=== PATIENT | female | born 1980 | race Two or more races ===

== ENCOUNTER 2023-09-24 12:07 | Emergency (ER) | payer SELFPAY ==
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
[2023-09-24 12:11] VITALS: BP 108/71; PULSE 78; RESP 19; TEMP 36.6; O2SAT 98; BMI 36.7
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
[2023-09-24 12:45] LABS: UPreg QC Valid YES; Urine Pregnancy NEGATIVE (NEGATIVE)
[2023-09-24] MEDS: Ketorolac Tromethamine 30 MG/ML VIAL IM (15:09)
== END 2023-09-24 15:29 | disposition home or self-care (01) ==
PROVIDERS: Physician Assistant Medical; Emergency Provider Emergency Medicine Emergency Medical Services
DX: S39.92XA Unspecified injury of lower back, initial encounter (principal); S89.91XA Unspecified injury of right lower leg, initial encounter; M25.551 Pain in right hip; M25.561 Pain in right knee; V43.62XA Car passenger injured in collision with other type car in traffic accident, initial encounter; Y93.9 Activity, unspecified; Y92.410 Unspecified street and highway as the place of occurrence of the external cause; Y99.9 Unspecified external cause status
CPT/HCPCS: 73502; 73562; 81025; 96372; 99283; 99284; J1885

== ENCOUNTER 2024-03-26 09:41 | Emergency (ER) | payer MEDICAID, SELFPAY ==
--- NOTE | ~2024-03-26 | XR_ITS ---
EXAMINATION: XR FINGER, LEFT CLINICAL INFORMATION: Middle finger injury COMPARISON: None available. TECHNIQUE: Three views of the left long finger. FINDINGS: No acute visible fracture or dislocation. Negative ulnar variance. Joint space alignment are maintained. Soft tissues are unremarkable. XR/XR finger LT min 2V IMPRESSION: 1. No acute visible fracture or dislocation. 2. Negative ulnar variance.
[2024-03-26 09:56] VITALS: BP 110/62; PULSE 67; RESP 18; TEMP 36.3; O2SAT 98; BMI 39.7
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
[2024-03-26 11:07] VITALS: BP 96/58; RESP 14; TEMP 36.2; O2SAT 98
[2024-03-26 12:30] VITALS: BP 109/57; PULSE 64; RESP 18; TEMP 36.2; O2SAT 96
== END 2024-03-26 12:31 | disposition home or self-care (01) ==
PROVIDERS: Emergency Provider Emergency Medicine
DX: S63.633A Sprain of interphalangeal joint of left middle finger, initial encounter (principal); W23.0XXA Caught, crushed, jammed, or pinched between moving objects, initial encounter; Y93.89 Activity, other specified; Y92.9 Unspecified place or not applicable; Y99.9 Unspecified external cause status; M79.642 Pain in left hand
CPT/HCPCS: 73140; 99283

== ENCOUNTER 2024-12-30 08:19 | Emergency (ER) | payer SELFPAY ==
[2024-12-30] VITALS (12 sets, daily range): BP systolic 99–154; BP diastolic 51–96; PULSE 55–106; RESP 14–18; TEMP 36.5–37.1; O2SAT 96–100; BMI 41.8
--- NOTE | ~2024-12-30 | US_ITS ---
EXAMINATION: US PELVIS CLINICAL INFORMATION: Severe lower abdominal pain and vaginal bleeding. 44-year-old female, history of . COMPARISON: None available. TECHNIQUE: Ultrasound of the pelvis is performed using both transabdominal and transvaginal transducers along with Doppler. Transvaginal imaging is performed due to inadequate visualization transabdominally. FINDINGS: Uterus: The uterus is anteverted and measures 14.9 x 5.2 x 5.1 cm. There is a large likely blood clot in the cervical region measuring 8.4 x 5.4 x 6.0 cm. Underlying cervical mass cannot be excluded. The double wall endometrial thickness is 19 mm. It is not well visualized due to shadowing from the abnormality in the cervical region. Limited imaging of the uterus demonstrates no discrete myometrial mass or fibroid. No visible fibroid. Adnexa: Both ovaries are visualized. There is normal color flow to the adnexa. There is no ovarian torsion. There is no pelvic ascites or fluid collection. No adnexal masses. Right ovary was not definitively visualized. Left ovary was not definitively visualized. US/US pelvic ovarian doppler IMPRESSION: 1. Large blood clot present within the cervical region measuring 8.4 x 5.4 x 6.0 cm. Underlying mass cannot be excluded. This also limited visualization of the myometrium and endometrium. Per technologist note, the patient passed a large clot after the transvaginal exam. ER was notified. 2. The ovaries could not be visualized with certainty. No large adnexal masses. 3. Limited imaging of the endometrium and myometrium. Endometrium appears to measure approximately 19 mm. 4. Although none seen, cannot exclude small myometrial fibroid tumors. Electronically signed by: Spencer Su MD 12/30/2024 10:18 AM [facility]
--- NOTE | ~2024-12-30 | US_ITS ---
EXAMINATION: US PELVIS CLINICAL INFORMATION: Severe lower abdominal pain and vaginal bleeding. 44-year-old female, history of . COMPARISON: None available. TECHNIQUE: Ultrasound of the pelvis is performed using both transabdominal and transvaginal transducers along with Doppler. Transvaginal imaging is performed due to inadequate visualization transabdominally. FINDINGS: Uterus: The uterus is anteverted and measures 14.9 x 5.2 x 5.1 cm. There is a large likely blood clot in the cervical region measuring 8.4 x 5.4 x 6.0 cm. Underlying cervical mass cannot be excluded. The double wall endometrial thickness is 19 mm. It is not well visualized due to shadowing from the abnormality in the cervical region. Limited imaging of the uterus demonstrates no discrete myometrial mass or fibroid. No visible fibroid. Adnexa: Both ovaries are visualized. There is normal color flow to the adnexa. There is no ovarian torsion. There is no pelvic ascites or fluid collection. No adnexal masses. Right ovary was not definitively visualized. Left ovary was not definitively visualized. US/US pelvic and transvaginal IMPRESSION: 1. Large blood clot present within the cervical region measuring 8.4 x 5.4 x 6.0 cm. Underlying mass cannot be excluded. This also limited visualization of the myometrium and endometrium. Per technologist note, the patient passed a large clot after the transvaginal exam. ER was notified. 2. The ovaries could not be visualized with certainty. No large adnexal masses. 3. Limited imaging of the endometrium and myometrium. Endometrium appears to measure approximately 19 mm. 4. Although none seen, cannot exclude small myometrial fibroid tumors. Electronically signed by: Spencer Su MD 12/30/2024 10:18 AM [facility]
--- NOTE | 2024-12-30 08:41 | ED.ABDPAIN ---
HPI - Abdominal Pain General Chief Complaint: Vaginal Bleeding Stated Complaint: ABD PAIN,INCR W/MOVEMENT,ON MENSES PER EMS Time Seen by Provider: 12/30/24 10:14 Source: patient and RN notes reviewed Mode of arrival: ambulatory Limitations: no limitations History of Present Illness ED Provider: Prudence English PA-C HPI narrative: This is a 44-year-old female, , who presents emergency department for evaluation of lower abdominal pain, and prolonged menstrual bleeding for the last month. patient states that she had her menstrual period in November, approximately November 27, and states that she had this for 5-6 days, which was her normal cycle. She states that it stopped for about 2-3 days, and then returned. She states that she has had vaginal bleeding over the last month. She states that over the last several days the bleeding has become much more heavy. She states that she was changing her pad every 1/2 hour. She states that she was using greater than 20 pads per day. Denies history of heavy menses like this in the past.She states that over the last several days she has also had some intermittent dizziness, which typically occurs when she developed severe pelvic pain. Patient states that she has had ongoing intermittent pelvic pain, describes this as a contraction like sensation. She denies history of similar symptoms in the past. She is not on anticoagulation. She denies any fevers, chills, chest pain, shortness of breath. she states that she has had intermittent nausea. States that she vomited several minutes prior to my assessment. She denies any urinary frequency, urgency, or dysuria. Denies any diarrhea constipation. She is sexually active with 1 partner. n She has not had intercourse over the last month due to menstrual bleeding. Her OBGYN who she previously saw was in [place], she does not have a local OBGYN now. No other complaints or concerns at this time. MD elicited complaint: abdominal pain Related Data Previous Rx's ?Medication ?Instructions ?Recorded acetaminophen 500 mg tablet 500 mg PO Q6H PRN fever or pain 09/24/23 (Tylenol Extra Strength) #14 tabs cyclobenzaprine 5 mg tablet 5 mg PO Q8H PRN pain (scale score 09/24/23 7-10) 5 days #14 tabs lidocaine 5 % topical patch 1 patch topical DAILY PRN pain #30 09/24/23 (Lidoderm) ea naproxen 500 mg tablet 500 mg PO BID PRN pain 10 days #20 09/24/23 tabs Allergies Allergy/AdvReac Type Severity Reaction Status Date / Time bee pollen [bee stings] Allergy Anaphylaxis Verified 12/30/24 08:43 peanut Allergy Anaphylaxis Verified 12/30/24 08:43 Review of Systems Review of Systems Yes all other systems are reviewed and are negative [facility] Social History Social History Alcohol intake: current Alcohol intake frequency: holidays/special occasions only Smoked in Last 30 Days: Yes Use of substances other than those prescribed or required for medical reasons: Yes Substance Use Type: Marijuana Substance Use Frequency: Occasionally Advance Directives: No Advance Directives Information Provided: Yes Physical Exam ED Vital Signs: Vital Signs - 24 hr 12/30/24 08:36 12/30/24 10:59 12/30/24 12:11 Temperature 98.7 F 98.2 F Pulse Rate 95 64 Respiratory Rate 18 14 14 Blood Pressure 104/78 99/55 L Pulse Oximetry 98 Oxygen Delivery Method Room Air Room Air Oxygen Flow Rate 12/30/24 13:18 12/30/24 15:14 12/30/24 15:27 Temperature 97.7 F 97.8 F Pulse Rate 55 69 67 Respiratory Rate 14 16 16 Blood Pressure 133/58 L 101/54 L 108/58 L Pulse Oximetry 100 99 Oxygen Delivery Method Nasal Cannula Room Air Oxygen Flow Rate 2 12/30/24 15:48 12/30/24 15:48 12/30/24 15:51 Temperature 98.2 F 98.2 F Pulse Rate 63 71 Respiratory Rate 16 17 14 Blood Pressure 118/70 118/70 Pulse Oximetry Oxygen Delivery Method Oxygen Flow Rate 12/30/24 18:30 12/30/24 18:38 Temperature 98.2 F 98 F Pulse Rate 73 68 Respiratory Rate 16 15 Blood Pressure 120/51 L 121/68 Pulse Oximetry 100 Oxygen Delivery Method Room Air Oxygen Flow Rate BMI result Body Mass Index 41.8 Other: Speculum exam performed with Dr. Kearns, supervising MD present. patient with blood noted on the external genitalia, with what ronni pad. upon inserting the speculum, there were small pea sized clots that were removed. She then had a larger grape sized clot that was removed from the vaginal vault. Upon removing, in vaginal bleeding filled speculum, this was suctioned out 10. Cervical os was visualized, which has closed, no active bleeding or clots seen. Course Course Course Narrative: 44 yo female with PMH of asthma not on thinners here with c/o unusually long menses x 1 month. States she is having heavy bleeding and clots with severe pelvic cramping. She has never had this before. She is not on OCPs at this time will obtain basic labs and pelvic US this is a RAPID medical screening exam the rest of the history and physical exam is to be done by the main provider. Reevaluation(s) Reevaluation #1: repeat H&H 07/31.6. This was done after giving IV fluids. blood pressure 99/55. She states that the cramping has improved after receiving fentanyl. Discussed case with Dr. Kearns who recommends reaching out to Dr. Graves I reassess patient, patient does appear to be vaginal bleeding again. Time: 13:10 Reevaluation #2: Patient was seen by Dr. Graves, who performed an endometrial biopsy as well as a Mirena IUD insertion. Dr. Graves be reports no evidence of hemorrhage however does report some moderate vaginal bleeding. Recommending transfused with 1 unit of rbc's, repeat CBC. And pad count in order to determine if patient can be discharged home or require D and C and to be kept overnight. Patient signed blood consent, will transfuse with 1 unit of PRBC. we will continue to closely monitor. Time: 14:00 Reevaluation #3: transfusion was initiated 15 minutes ago, patient reporting increased pain, she will be treated with another dose of fentanyl 50 mcg. She tolerated this well previously. We will continue to closely monitor blood pressure stable at 105/58 Time: 15:46 Additional Reevaluation(s): Patient was seen and evaluated again by Dr. Graves . I was at bedside. Patient's bleeding seems to have slowed. We will medicate with Toradol IV. We will continue to monitor. She was receiving her blood transfusion at this time. We will repeat CBC once this blood transfusion has been completed. Patient may be discharged if the CBC remained stable or has improved however if patient does have a drop in hemoglobin hematocrit, patient will need to be admitted for monitoring. Dr. Ely vargas discussed strict return precautions should she be discharged. Educated to return if increased bleeding occurs. We will continue to closely monitor. Sign-out was given to my colleague, Roxanne Rodriguez PA-C pending disposition. Course Hospital Course: I Shanta Rodriguez PA-C have accepted care of the patient and signed out pending repeat H&H and final disposition 3rd H&H is stable, the patient can be discharged for follow up with gynaecological oncologist Reevaluation(s) Time: 13:10 Time: 14:00 Time: 15:46 Vital Signs Vital signs: Vital Signs Temperature 98.7 F 12/30/24 08:36 Pulse Rate 95 12/30/24 08:36 Respiratory Rate 18 12/30/24 08:36 Blood Pressure 104/78 12/30/24 08:36 Pulse Oximetry 98 12/30/24 08:36 Oxygen Delivery Method Room Air 12/30/24 08:36 Temperature 98 F 12/30/24 18:38 Pulse Rate 68 12/30/24 18:38 Respiratory Rate 15 12/30/24 18:38 Blood Pressure 121/68 12/30/24 18:38 Pulse Oximetry 100 12/30/24 18:30 Oxygen Delivery Method Room Air 12/30/24 18:30 Oxygen Flow Rate 2 12/30/24 13:18 Medical Decision Making Medical Decision Making MDM Narrative: This is a 44-year-old female who presents to the emergency department for evaluation of vaginal bleeding for the last month. On arrival, blood pressure 104/78, all other vital signs within normal limits. She states that she had her normal menses 1 month ago, which stopped after 4-5 days, and then 2-3 days later, the bleeding started again. She states that she has been vaginally bleeding continuously for the last month, she states that over the last several days she has been having increased bleeding. She states that she has had intermittent dizziness. she has been going through a pad every 30 minutes. She states that she has +large clots. Speculum examination was performed with my attending physician, Dr. Kearns present. Large blood clot removed using suction, sectioned approximately 100 mL of vaginal thin blood. Cervical os was visualized, and is closed, no active bleeding or clots seen. Pressure became slightly hypotensive at 99/55, 2 L of LR were hung. Patient also medicated with IV Tylenol. Will hydrate with 2 L IV fluids. H&H revealing normocytic anemia with an H&H of 10.2/30.6, beta quant <2. Ultrasound was ordered prior to my assessment. The impression is a large blood clot present within the cervical region measuring 8.4cm x 5cm x 6cm. Underlying mass can not be excluded. This also limited visualization of the myometrium and endometrium. Per tech note, patient passed a large clot after the transvaginal exam. The ovaries could not be visualized with certainty. Limited imaging of the endometrium and myometrium. Endometrium appears to measure approximately 19 mm. Can not exclude small myometrial fibroid tumors. We will repeat CBC after completion of fluids at noon. We will continue to closely monitor. She was also medicated with fentanyl 1 time dose. Differential Diagnosis Differential Diagnoses: The differential diagnosis associated with the presentation includes abnormal uterine bleeding, , malignancy, uterine fibroid, uterine hemorrhage Lab Data [facility] Lab Attestation statement: I reviewed the patient's lab results. see [facility] 12/30/24 19:29 12/30/24 09:18 Labs: Lab Results 12/30/24 12/30/24 12/30/24 Range/Units 09:18 12:17 19:29 WBC 9.3 10.6 (4.8-10.8) X10*3/uL RBC 3.48 L 3.13 L (4.20-5.50) X10*6/uL Hgb 10.2 L 9.0 L 10.1 L (12.0-16.0) g/dl Hct 30.6 L 27.6 L 30.9 L (37.0-47.0) % MCV 87.9 88.2 (80.0-98.0) fL MCH 29.3 28.8 (27.0-33.0) pg MCHC 33.3 32.6 (31.0-35.0) g/dl RDW 15.5 15.6 (11.0-16.0) % Plt Count 289 249 (160-400) X10*3/uL MPV 10.3 10.0 (9.4-12.3) fL Immature Gran % (Auto) 0.3 0.4 (0.0-0.4) % Neut % (Auto) 63.0 73.1 H (45-73) % Lymph % (Auto) 29.2 21.4 (20-40) % Ritchie % (Auto) 5.7 4.0 (2-11) % Eos % (Auto) 1.5 0.8 (0-4) % Baso % (Auto) 0.3 0.3 (0-2) % Lymph # (Auto) 2.7 2.3 (1.2-4.9) X10*3/uL Ritchie # (Auto) 0.5 0.4 (0.1-1.2) X10*3/uL Eos # (Auto) 0.1 0.1 (0.0-0.4) X10*3/uL Baso # (Auto) 0.0 0.0 (0.0-0.2) X10*3/uL Abs Immat Gran (auto) 0.03 0.04 H (0.00-0.03) X10*3/uL Absolute Neuts (auto) 5.8 7.8 (2.0-8.3) x10*3/uL Absolute Nucleated RBC 0.000 0.000 (0.0-0.012) X10*3/uL Nucleated RBC % (auto) 0.0 0.0 (0.0-0.2) /100WBC Sodium 140 (135-145) mmol/L Potassium 3.9 (3.3-5.1) mmol/L Chloride 111 H (96-108) mmol/L Carbon Dioxide 25 (22-29) mmol/L Anion Gap 8 L (12-20) BUN 7 L (9-16) mg/dL Creatinine 0.70 (0.5-1.4) mg/dL Estim Creat Clear Calc 123.3 Estimated GFR > 60 Random Glucose 113 (60-115) mg/dL Calcium 8.4 (8.4-10.2) mg/dL Magnesium 1.9 (1.6-2.6) mg/dL Total Bilirubin 0.2 (0.0-1.0) mg/dL Direct Bilirubin < 0.2 (0.0-0.5) mg/dL AST 32 H (5-31) U/L ALT 28 (0-31) U/L Alkaline Phosphatase 68 (39-117) U/L Total Protein 7.4 (6.5-8.0) g/dL Albumin 3.7 (3.5-5.0) g/dL Lipase 18 (8-78) U/L Beta HCG, Quant < 2 mIU/mL Blood Type A Negative Antibody Screen NEGATIVE Crossmatch See Detail Radiology Impression Discussion of test interpretation with radiology: I have reviewed the radiologist's reading. Radiologist Impression: EXAMINATION: US PELVIS CLINICAL INFORMATION: Severe lower abdominal pain and vaginal bleeding. 44-year-old female, history of . COMPARISON: None available. TECHNIQUE: Ultrasound of the pelvis is performed using both transabdominal and transvaginal transducers along with Doppler. Transvaginal imaging is performed due to inadequate visualization transabdominally. FINDINGS: Uterus: The uterus is anteverted and measures 14.9 x 5.2 x 5.1 cm. There is a large likely blood clot in the cervical region measuring 8.4 x 5.4 x 6.0 cm. Underlying cervical mass cannot be excluded. The double wall endometrial thickness is 19 mm. It is not well visualized due to shadowing from the abnormality in the cervical region. Limited imaging of the uterus demonstrates no discrete myometrial mass or fibroid. No visible fibroid. Adnexa: Both ovaries are visualized. There is normal color flow to the adnexa. There is no ovarian torsion. There is no pelvic ascites or fluid collection. No adnexal masses. Right ovary was not definitively visualized. Left ovary was not definitively visualized. US/US pelvic and transvaginal IMPRESSION: 1. Large blood clot present within the cervical region measuring 8.4 x 5.4 x 6.0 cm. Underlying mass cannot be excluded. This also limited visualization of the myometrium and endometrium. Per technologist note, the patient passed a large clot after the transvaginal exam. ER was notified. 2. The ovaries could not be visualized with certainty. No large adnexal masses. 3. Limited imaging of the endometrium and myometrium. Endometrium appears to measure approximately 19 mm. 4. Although none seen, cannot exclude small myometrial fibroid tumors. Electronically signed by: Spencer Su MD 12/30/2024 10:18 AM [facility] Dictated By: Spencer Su MD Signed By: <Electronically signed by Spencer Su MD in OV> Medications Administered Discontinued Medications Generic Name Dose Route Start Last Admin Trade Name Freq PRN Reason Stop Dose Admin Fentanyl 50 mcg 12/30/24 11:04 12/30/24 12:11 Fentanyl Citrate/Pf 100 Mcg/2 Ml Vial IVPUSH 12/30/24 11:05 50 mcg ONCE ONE Administration Protocol Fentanyl 50 mcg 12/30/24 15:46 12/30/24 15:51 Fentanyl Citrate/Pf 100 Mcg/2 Ml Vial IVPUSH 12/30/24 15:47 50 mcg ONCE ONE Administration Protocol Lactated Ringer's 1,000 mls @ 999 mls/hr 12/30/24 10:20 12/30/24 11:43 Lr IV 12/30/24 11:20 Infused .Q1H1M ONE Infusion Acetaminophen 1,000 mg in 100 mls @ 400 mls/hr 12/30/24 10:20 12/30/24 11:15 Ofirmev IV 12/30/24 10:34 Infused ONCE ONE Infusion Ketorolac Tromethamine 30 mg 12/30/24 08:43 12/30/24 10:30 Ketorolac Tromethamine 30 Mg/Ml Vial IM 12/30/24 08:44 Not Given ONCE ONE Ketorolac Tromethamine 15 mg 12/30/24 17:04 12/30/24 18:14 Ketorolac Tromethamine 15 Mg/Ml Vial IVPUSH 12/30/24 17:05 15 mg ONCE ONE Administration Ondansetron HCl 4 mg 12/30/24 10:20 12/30/24 10:36 Ondansetron Hcl 4 Mg/2 Ml Vial IVPUSH 12/30/24 10:21 4 mg ONCE ONE Administration Critical Care Time Critical Care Time Critical Care Time: Yes Total Critical Care Time: 35 Attestation: I have personally provided critical care time exclusive of time spent on separately billable procedures. Time includes review of lab data, radiology results, discussion with consultants, and monitoring for potential decompensation. Intervention performed as documented. Discharge Plan Discharge Clinical Impression: Abnormal uterine bleeding (AUB) Patient Disposition: Home, Self-Care Additional Instructions: You were seen in the emergency department due to vaginal bleeding. You received a blood transfusion. You also had an IUD placed by OBGYNDr. Graves. You also had a biopsy performed by him as well. Please follow-up with Dr. Graves in 2 weeks. Call his office to make an appointment. If you develop any new or worsening symptoms including but not limited to worsening bleeding, dizziness, lightheadedness, chest pain, shortness of breath, please seek emergent care. Prescriptions: No Action acetaminophen [Tylenol Extra Strength] 500 mg tablet 500 mg PO Q6H PRN (Reason: fever or pain) Qty: 14 0RF lidocaine [Lidoderm] 5 % adhesive patch,medicated 1 patch topical DAILY MDD remove after 12 hours PRN (Reason: pain) Qty: 30 0RF Rx Instructions: leave on most painful area for up to 12 hrs naproxen 500 mg tablet 500 mg PO BID PRN (Reason: pain) 10 Days Qty: 20 0RF cyclobenzaprine 5 mg tablet 5 mg PO Q8H PRN (Reason: pain (scale score 7-10)) 5 Days Qty: 14 0RF Referrals: Aman Graves MD [Physician] - Stand Alone Forms: Work/School Release Print Language: Japanese
[2024-12-30 09:23] LABS: MANUAL DIFF FLAG NO
[2024-12-30 09:34] LABS: Basophils Percent Auto 0.3 % (0-2); Eosinophils Absolute Auto 0.1 X10*3/uL (0.0-0.4); Eosinophils Percent Auto 1.5 % (0-4); Hematocrit 30.6 % (37.0-47.0); Hemoglobin 10.2 g/dl (12.0-16.0); Imm Gran Abs Auto 0.03 X10*3/uL (0.00-0.03); Imm Gran Pct Auto 0.3 % (0.0-0.4); Lymphocytes Absolute Auto 2.7 X10*3/uL (1.2-4.9); Lymphocytes Percent Auto 29.2 % (20-40); Mean Corpuscular HGB Conc 33.3 g/dl (31.0-35.0); Mean Corpuscular Hemoglobin 29.3 pg (27.0-33.0); Mean Corpuscular Volume 87.9 fL (80.0-98.0); Mean Platelet Volume 10.3 fL (9.4-12.3); Monocytes Absolute Auto 0.5 X10*3/uL (0.1-1.2); Monocytes Percent Auto 5.7 % (2-11); Neutrophils Absolute Auto 5.8 x10*3/uL (2.0-8.3); Platelet Count 289 X10*3/uL (160-400); Red Blood Count 3.48 X10*6/uL (4.20-5.50); Red Cell Distribution Width 15.5 % (11.0-16.0); White Blood Count 9.3 X10*3/uL (4.8-10.8)
[2024-12-30 09:44] LABS: Alanine Aminotransferase 28 U/L (0-31); Albumin Level 3.7 g/dL (3.5-5.0); Alkaline Phosphatase 68 U/L (39-117); Anion Gap 8 (12-20); Aspartate Amino Transferase 32 U/L (5-31); Bilirubin Direct < 0.2 mg/dL (0.0-0.5); Bilirubin Total 0.2 mg/dL (0.0-1.0); Blood Urea Nitrogen 7 mg/dL (9-16); Calcium 8.4 mg/dL (8.4-10.2); Carbon Dioxide 25 mmol/L (22-29); Chloride 111 mmol/L (96-108); Creatinine Clr Calc Pharmacy 123.3; Estimated Glomerular Filt Rate > 60; Glucose Random 113 mg/dL (60-115); Lipase 18 U/L (8-78); Magnesium 1.9 mg/dL (1.6-2.6); Potassium 3.9 mmol/L (3.3-5.1); Sodium 140 mmol/L (135-145); Total Protein 7.4 g/dL (6.5-8.0)
[2024-12-30 09:45] LABS: HCG Quantitative < 2 mIU/mL
[2024-12-30] MEDS: Lactated Ringers 1,000 ML 999 ML IV (10:35)
[2024-12-30] MEDS: Acetaminophen 1,000 MG/100 ML PIGGYBACK 400 MG IV (10:36)
[2024-12-30] MEDS: ondansetron HCL 4 MG/2 ML VIAL IVPUSH (10:36)
--- NOTE | 2024-12-30 10:47 | PC.NURSE ---
Edwina MIRAMONTES doing pelvic at bedside
--- NOTE | 2024-12-30 10:47 | PC.NURSE ---
Pt remains on laboratory equipment cleaner
--- NOTE | 2024-12-30 10:58 | PC.NURSE ---
[facility]
--- NOTE | 2024-12-30 10:58 | PC.NURSE ---
100cc filemon red blood suctioned from vagina per PA into cannister
[2024-12-30] MEDS: fentaNYL citrate/PF 100 MCG/2 ML VIAL 50 MCG IVPUSH ×2 (12:11→15:51)
[2024-12-30 12:20] LABS: MANUAL DIFF FLAG NO
[2024-12-30 12:22] LABS: Basophils Percent Auto 0.3 % (0-2); Eosinophils Absolute Auto 0.1 X10*3/uL (0.0-0.4); Eosinophils Percent Auto 0.8 % (0-4); Hematocrit 27.6 % (37.0-47.0); Imm Gran Abs Auto 0.04 X10*3/uL (0.00-0.03); Imm Gran Pct Auto 0.4 % (0.0-0.4); Lymphocytes Absolute Auto 2.3 X10*3/uL (1.2-4.9); Lymphocytes Percent Auto 21.4 % (20-40); Mean Corpuscular HGB Conc 32.6 g/dl (31.0-35.0); Mean Corpuscular Hemoglobin 28.8 pg (27.0-33.0); Mean Corpuscular Volume 88.2 fL (80.0-98.0); Monocytes Absolute Auto 0.4 X10*3/uL (0.1-1.2); Neutrophils Absolute Auto 7.8 x10*3/uL (2.0-8.3); Neutrophils Percent Auto 73.1 % (45-73); Platelet Count 249 X10*3/uL (160-400); Red Blood Count 3.13 X10*6/uL (4.20-5.50); Red Cell Distribution Width 15.6 % (11.0-16.0); White Blood Count 10.6 X10*3/uL (4.8-10.8)
--- NOTE | 2024-12-30 13:12 | P.CONOB_ITS ---
LEAD DESIGNER - CN: HPI Data of Consult Consult date: 12/30/24 Primary Care Provider: Unknown Physician Consult Narrative Narrative: I was consulted on Zahra Banuelos is a 44 year old female presenting to emergency room with heavy menstrual cycles associated with pelvic cramping and passage of blood clots over the last few weeks, no other associated symptoms Last co testing? Last mammogram? On arrival to the emergency room H&H was 10.2/30.6 and 9:18, repeated after 2 L of IV hydration H&H dropped to 27.6 at 12:18 HCG less than 2 Pelvic ultrasound showed the following: IMPRESSION: 1. Large blood clot present within the cervical region measuring 8.4 x 5.4 x 6.0 cm. Underlying mass cannot be excluded. This also limited visualization of the myometrium and endometrium. Per technologist note, the patient passed a large clot after the transvaginal exam. ER was notified. 2. The ovaries could not be visualized with certainty. No large adnexal masses. 3. Limited imaging of the endometrium and myometrium. Endometrium appears to measure approximately 19 mm. 4. Although none seen, cannot exclude small myometrial fibroid tumors cc:: CC: OB ON LICENSE OF [facility] Social History Social History Alcohol intake: current Alcohol intake frequency: holidays/special occasions only Smoked in Last 30 Days: Yes Use of substances other than those prescribed or required for medical reasons: Yes Substance Use Type: Marijuana Substance Use Frequency: Occasionally Advance Directives: No Advance Directives Information Provided: Yes Meds Allergies Allergy/AdvReac Type Severity Reaction Status Date / Time bee pollen [bee stings] Allergy Anaphylaxis Verified 12/30/24 08:43 peanut Allergy Anaphylaxis Verified 12/30/24 08:43 LEAD DESIGNER Physical Exam Vitals Vital signs: Temp Pulse Resp BP Pulse Ox O2 Del Method 98.2 F 64 14 99/55 L 98 Room Air 12/30/24 10:59 12/30/24 10:59 12/30/24 12:11 12/30/24 10:59 12/30/24 08:36 12/30/24 10:59 BMI result Body Mass Index 41.8 Female Genitalia (Pelvic) Bladder/Urethra: Normal meatus Vulva: No lesions Vagina: Nontender Cervix: Grossly normal Uterus: Normal size and Nontender Adnexa/Parametria: Adnexal Tenderness: None, Adnexal Mass: None, Parametrial Tenderness: None and Parametrial Mass: None Additional Comments: No evidence of active vaginal bleeding LEAD DESIGNER - Results Labs 12/30/24 12:17 12/30/24 09:18 Labs: Short CBC 12/30/24 12/30/24 Range/Units 09:18 12:17 WBC 9.3 10.6 (4.8-10.8) X10*3/uL Hgb 10.2 L 9.0 L (12.0-16.0) g/dl Hct 30.6 L 27.6 L (37.0-47.0) % Plt Count 289 249 (160-400) X10*3/uL BMP 12/30/24 09:18 Sodium 140 Potassium 3.9 Chloride 111 H Carbon Dioxide 25 BUN 7 L Creatinine 0.70 Calcium 8.4 Liver Function 12/30/24 Range/Units 09:18 Total Bilirubin 0.2 (0.0-1.0) mg/dL Direct Bilirubin < 0.2 (0.0-0.5) mg/dL AST 32 H (5-31) U/L ALT 28 (0-31) U/L Alkaline Phosphatase 68 (39-117) U/L Albumin 3.7 (3.5-5.0) g/dL Antibody Screen Antibody Screen NEGATIVE 12/30/24 09:18 Imaging US - abdomen: Radiologist's impression: ITS Impressions Doppler Study Ultrasound 12/30/24 09:23 IMPRESSION: 1. Large blood clot present within the cervical region measuring 8.4 x 5.4 x 6.0 cm. Underlying mass cannot be excluded. This also limited visualization of the myometrium and endometrium. Per technologist note, the patient passed a large clot after the transvaginal exam. ER was notified. 2. The ovaries could not be visualized with certainty. No large adnexal masses. 3. Limited imaging of the endometrium and myometrium. Endometrium appears to measure approximately 19 mm. 4. Although none seen, cannot exclude small myometrial fibroid tumors. Electronically signed by: Spencer Su MD 12/30/2024 10:18 AM [facility] [place] Pelvic/Transvag US 12/30/24 09:23 IMPRESSION: 1. Large blood clot present within the cervical region measuring 8.4 x 5.4 x 6.0 cm. Underlying mass cannot be excluded. This also limited visualization of the myometrium and endometrium. Per technologist note, the patient passed a large clot after the transvaginal exam. ER was notified. 2. The ovaries could not be visualized with certainty. No large adnexal masses. 3. Limited imaging of the endometrium and myometrium. Endometrium appears to measure approximately 19 mm. 4. Although none seen, cannot exclude small myometrial fibroid tumors. Electronically signed by: Spencer Su MD 12/30/2024 10:18 AM [facility] Assessment and Plan (1) Abnormal uterine bleeding (AUB): Status: Acute Co testing done, GC and chlamydia taken. Discussed with the patient the different causes of abnormal bleeding including but not limited uterine and ovarian pathology, endometrial hyperplasia, carcinoma and other potential causes. Discussed with the patient the work up including endometrial biopsy to r/o endometrial pathology. All questions answered and the patient verbalized understanding. EMB done, see procedure note Discussed with the patient the results of the work up done so far and the options of treatment including Lysteda, control pills, Mirena IUD, endometrial ablation and hysterectomy. All pros, cons, risks and benefits if each option was discussed with the patient and the patient decided to go ahead with Mirena IUD so a more detailed discussion about it was conducted including mechanism of action, risks (uterine perforation, infection, injury to bladder, bowel, displacement, and others) benefits (hypo menorrhea, amenorrhea, ...). GC/CT were taken and Mirena IUD insertion done, see procedure . All questions answered, the patient verbalized understanding Recommended to FE Robles the following: keep for observation, NPO, transfuse 1 unit of packed RBCs, repeat CBC post transfusion, pad count in order to determine if the patient can be discharged home , proceed with D&C, order to keep for overnight observation. 16:25 the patient had 1 pad so far, bleeding has slowed down, is receiving 1 unit of blood transfusion complaining of pelvic cramping. Repeat pelvic exam, minimal vaginal bleeding, IUD in place. Recommended to FE Robles the following: Ibuprofen 600 mg p.o. q.6 p.r.n. pelvic pain After completing blood transfusion, keep the patient for observation for few hours and repeat CBC, if the patient is hemodynamically stable and not having heavy bleeding bleeding, the patient is to be discharged home to follow-up in the office in 1-2 days. Instructions to be given to patient to come back to the emergency room in case of heavy vaginal bleeding, pelvic pain, fever above 100.4, nausea or vomiting. Follow-up in the office within 48 hours. Plan IUD Insert/Removal Details Details: Endometrial biopsy The patient was counseled regarding the indication and benefits of endometrial sampling to rule out endometrial pathology including not limited to endometrial hyperplasia or endometrial cancer and others; The alternatives (Either do nothing vs. hysteroscopy D&C) & the risks were discussed with the patient including but not limited: pain, uterine perforation, bleeding, infection, possible injury to bladder, bowel, ureter, possible need for blood transfusion with all its possible risks. The patient verbalized understanding all questions answered and signed consent. The patient was placed into the dorsal lithotomy position; a speculum was inserted in the vagina. Using aseptic technique for the procedure, the cervix was cleansed with Betadine. The anterior lip of the cervix was grasped with a single tooth tenaculum. The uterus was sounded to 7 cm with a 4 mm Pipelle was used. Tissues samples were obtained and placed in formalin, in a patient labeled container and sent to the pathology department. At the end of the procedure, there was minimal bleeding noted The patient tolerated the procedure well and was discharged in good condition with the following instructions: Nothing in the vagina until the bleeding stops. No sex until the bleeding stops, to call if any of the following occurs: fever (>100.4), flu-like symptoms, abdominal pain, heavy bleeding, four smelling vaginal discharge. The patient was instructed to schedule a Follow up appointment in 2 weeks to discuss pathology results of the biopsy and treatment options. Mirena IUD insertion HCG quantitative was negative; All the contraindications were excluded. The following possible complications were discussed with the patient: Intrauterine , Ectopic , Sepsis, Pelvic Infection, Irregular Bleeding and Amenorrhea, Perforation, Expulsion, Ovarian Cysts, Breast Cancer, The following adverse effects were discussed with the patient: alteration of menstrual bleeding pattern, including: unscheduled uterine bleeding decreased uterine bleeding increased scheduled uterine bleeding female genital tract bleeding ,amenorrhea , genital discharge , vulvovaginitis , breast pain , benign ovarian cyst and associated complications , dysmenorrhea , Gastrointestinal disorders abdominal/pelvic pain, headache/migraine , back pain , acne , depression Alternative options were discussed with the patient including but not limited: control pills, patch, NuvaRing, Depo-medroxyprogesterone acetate, Nexplanon, copper IUD, sterilization, vasectomy, others The procedure was explained in detail to patient , at the end patient signed the informed consent obtained. A no touch technique was used throughout the procedure. A speculum was placed into vagina and cervix was cleaned with betadine). A tenaculum was placed. A plastic sound was advanced through the external and internal os until it reached the fundus of the uterus, the depth was 8 cm. The sound was then withdrawn. The IUD was loaded in a sterile manner and advanced into position. The string was visualized and cut to 3 cm. Tenaculum site hemostatic. All instruments removed from vagina. Patient tolerated the procedure well. NO complications were noted. Patient was instructed to call for fever over 100.4, significant pain unrelieved by Motrin, IUD expulsion, heavy bleeding, or abnormal discharge. In addition, the following clinical considerations were discussed with the patient to call for removal: A stroke or heart attack ,Very severe or migraine headaches ,Unexplained fever ,Yellowing of the skin or whites of the eyes, as these may be signs of serious liver problems , or suspected , Pelvic pain or pain during sex ,HIV positive seroconversion in herself or her partner , Possible exposure to sexually transmitted infections Unusual vaginal discharge or genital sores , severe vaginal bleeding or bleeding that lasts a long time, or if she misses a menstrual period, Inability to feel Mirena's threads Counseled the patient that the IUD does not protect against STI's, recommended use of condoms for the first 7 days post insertion and explained to the patient that condoms are recommended for patients at risk for sexually transmitted infections. Informed the patient that Mirena IUD is FDA approved for 8 years for contraception for 5 years for the treatment of heavy menses Instructed the patient to schedule a Follow up appointment in 4 to 6 weeks following insertion. This note was generated with a voice recognition program. Some errors may have been overlooked during the review of this note. Sometimes these errors may affect the content or meaning of a given sentence. [id number] Insertion Procedure code (CPT) selection complete
[2024-12-30] MEDS: Ketorolac Tromethamine 15 MG/ML VIAL IVPUSH (18:14)
[2024-12-30 19:35] LABS: Hematocrit 30.9 % (37.0-47.0); Hemoglobin 10.1 g/dl (12.0-16.0)
[2024-12-30 23:11] LABS: CT PCR NOT DETECTED (Not Detect.); NG PCR NOT DETECTED (Not Detect.)
[2025-01-05 11:28] LABS: HPV Genotype 16 Negative (Negative); HPV Genotype 18 Negative (Negative); HPV High Risk Negative (Negative)
== END 2024-12-30 20:00 | disposition home or self-care (01) ==
PROVIDERS: Emergency Medicine; Obstetrics & Gynecology; Physician Assistant Medical; Emergency Provider Emergency Medicine
DX: N93.9 Abnormal uterine and vaginal bleeding, unspecified (principal); R10.2 Pelvic and perineal pain
CPT/HCPCS: 36415; 36430; 58300; 76830; 76856; 80048; 80076; 83690; 83735; 84702; 85014; 85018; 85025; 86850; 86900; 86901; 86923; 87491; 87591; 87626; 88175; 88305; 93975; 96361; 96374; 96375; 96376; 99284; 99285; J0131; J1885; J2405; J3010; J7120; P9016

== ENCOUNTER → 2024-12-30 08:43 | Outpatient (BNV) | payer SELFPAY | PROVIDERS: Emergency Provider Emergency Medicine; Visit Provider Radiology Diagnostic Radiology | DX: N85.7 Hematometra (principal) | CPT/HCPCS: 76830; 76856; 93975 ==

== ENCOUNTER → 2024-12-30 10:03 | Outpatient (BNV) | payer SELFPAY | PROVIDERS: Emergency Provider Emergency Medicine; Visit Provider Obstetrics & Gynecology | DX: N93.9 Abnormal uterine and vaginal bleeding, unspecified (principal) | CPT/HCPCS: 99284 ==

== ENCOUNTER 2025-01-01 10:42 | Outpatient (REF) | payer SELFPAY ==
[2025-01-01 11:00] LABS: Hematocrit 31.1 % (37.0-47.0); Hemoglobin 10.1 g/dl (12.0-16.0); Mean Corpuscular HGB Conc 32.5 g/dl (31.0-35.0); Mean Corpuscular Hemoglobin 28.8 pg (27.0-33.0); Mean Corpuscular Volume 88.6 fL (80.0-98.0); Mean Platelet Volume 10.3 fL (9.4-12.3); Platelet Count 264 X10*3/uL (160-400); Red Blood Count 3.51 X10*6/uL (4.20-5.50); Red Cell Distribution Width 15.4 % (11.0-16.0); White Blood Count 8.3 X10*3/uL (4.8-10.8)
== END 2025-01-01 10:43 | disposition home or self-care (01) ==
LOC: HO.LAB 10:42
PROVIDERS: Visit Provider Obstetrics & Gynecology
DX: Z09 Encounter for follow-up examination after completed treatment for conditions other than malignant neoplasm (principal); N93.9 Abnormal uterine and vaginal bleeding, unspecified
CPT/HCPCS: 36415; 85027; 99212

== ENCOUNTER 2025-01-01 11:03 | Outpatient (AMB) | payer SELFPAY ==
[2025-01-01 11:11] VITALS: BP 122/82; BMI 44.3
--- NOTE | 2025-01-01 11:11 | MHC.OFFVIS ---
Vital Signs 01/01/25 11:11 Height 5 ft 3 in Weight 250 lb BMI 44.3 BP 122/82 Intake Visit Reasons: ER Follow up Billet Shearer Required: Yes Billet Shearer Language: Shrimp Picker Services: Billet Shearer Present (in person) Billet Shearer Name: Cheyenne ALCALA Information Interpreted: non-clinical & clinical It Senior Software Engineer Java: It Senior Software Engineer Java Present (Cheyenne ALCALA) Accompanied by: Self / Same As Patient Allergies bee pollen [bee stings] Allergy (Verified 01/01/25 11:12) Anaphylaxis peanut Allergy (Verified 01/01/25 11:12) Anaphylaxis HPI Comments Details: Presenting 2 days post ED follow-up. The patient went to the emergency room 2 days ago with heavy bleeding, received 1 unit of packed RBCs. On arrival to the ER her hematocrit was 30.7, dropped within few hours to 27.6, post transfusion Hct came up to 30.9 and today repeated with 31.1. The patient is doing well markedly better her bleeding has resolved. No other complaints No previous screening mammogram [facility] Social History Alcohol intake: current Alcohol intake frequency: holidays/special occasions only Substance Use Type: Marijuana Review of Systems Const All systems reviewed & are unremarkable except as noted in HPI and below Physical Exam Vital Signs: Last Vital Signs BP 122/82 01/01/25 11:11 BMI result Body Mass Index 44.3 General: Yes no CVA tenderness External Female Exam: normal external appearance and normal appearance of the urethra Speculum Exam - Vagina: normal appearance of the vagina, normal palpation, no lesions and no masses Speculum Exam - Cervix: normal appearance of the cervix, normal palpation, no lesions, no masses, nontender and Other cervical findings present (IUD string in place) Bimanual exam- vagina & uterus: normal bimanual exam, normal palpation, uterine size normal, normal palpation, uterine shape normal, No Cervical tenderness present and non-tender Bimanual Exam- Adnexa, other: normal adnexae Back/Spine/Pelvis Back: no CVA tenderness Assessment & Plan Assessment & Plan (1) Abnormal uterine bleeding (AUB): Code(s): N93.9 - Abnormal uterine and vaginal bleeding, unspecified Category: Medical Plan: TSH, hCG, FSH/LH with screening mammogram ordered Iron sulfate 325 mg p.o. b.i.d. recommended the patient Instructions given the patient to schedule a 2 week follow-up appointment, to call or go to emergency room in case of recurrence of vaginal bleeding or any other concerns. All questions answered, the patient verbalized understanding and agreed with the plan Orders: Orders TSH reflex Free T4 Today N93.9 - Abnormal uterine and vaginal bleeding, unspecified Lutenizing Hormone Today N93.9 - Abnormal uterine and vaginal bleeding, unspecified MM tomosynthesis screening BI Today Z12.31 - Encounter for screening mammogram for malignant neoplasm of breast Prolactin Today N93.9 - Abnormal uterine and vaginal bleeding, unspecified Follicle Stimulating Hormone Today N93.9 - Abnormal uterine and vaginal bleeding, unspecified Coding Level of Care Code Est Pt Level 3 (96577) Diagnoses Abnormal uterine bleeding (AUB) N93.9
== END 2025-01-01 11:32 | disposition home or self-care (01) ==
LOC: HO.HWS 11:03
PROVIDERS: Visit Provider Obstetrics & Gynecology
DX: N93.9 Abnormal uterine and vaginal bleeding, unspecified (principal)
CPT/HCPCS: 99213

== ENCOUNTER 2025-01-06 15:23 | Outpatient (AMB) | payer SELFPAY ==
--- NOTE | 2025-01-06 15:26 | A.OFFVIS_ITS ---
Vital Signs 01/06/25 15:30 Height 5 ft 3 in Weight 250 lb BMI 44.3 BP 122/84 Intake Visit Reasons: Colposcopy [employer] Supervisor Required: Yes [employer] Supervisor Language: Superintendent Production Services: [employer] Supervisor Present (in person) [employer] Supervisor Name: Cheyenne ALCALA Information Interpreted: non-clinical & clinical Junior Accounting Clerk: Junior Accounting Clerk Present (Cheyenne ALCALA) Accompanied by: Self / Same As Patient Allergies bee pollen [bee stings] Allergy (Verified 01/06/25 15:31) Anaphylaxis peanut Allergy (Verified 01/06/25 15:31) Anaphylaxis Is last menstrual period known: No (mirena) HPI Comments Details: Presenting for abnormal Pap smear showing the following: Satisfactory for evaluation (following reprocessing with acid wash procedure), with atypical glandular cells of undetermined significance (AGC-US). Endometrial cells present age 45 and over. Scant cellularity. Comment: Endometrial cells after age 45, particularly out of phase or after menopause, may be associated with benign endometrium, hormonal alterations or, less commonly, endometrial/uterine abnormalities. Please correlate with clinical findings. HPV High Risk: Negative HPV Genotyping 16: Negative HPV Genotyping 18: Negative EMB done on 12/30/2024, the pathology showed the following: Endometrium, biopsy: -Benign endometrium with extensive glandular and stromal breakdown (lytic endometrium), with abundant blood; no atypia or carcinoma. -Benign endocervical glandular and squamous mucosa [facility] Social History Alcohol intake: current Alcohol intake frequency: holidays/special occasions only Substance Use Type: Marijuana Physical Exam Vital Signs: BMI result Body Mass Index 44.3 Office Procedures Colposcopy Colposcopy: Pre-Procedure Counseling: Before beginning the procedure, I conducted comprehensive counseling with the patient. We thoroughly discussed the procedure itself, including its details, alternatives, and all associated risks. This included but not limited to the following complications such as bleeding, infection, and injury to the vagina, bladder, and vessels, as well as the potential need for transfusion with all its associated risks. Subsequently, the patient sign the consent. Pap smear result: Ascus with endometrial cells/HPV negative Urine test in office = Negative Procedure: During the procedure, the following steps were performed: A speculum was inserted, and acetic acid was applied. Colposcopy was conducted, allowing visualization of the transformation zone. Acetowhite lesions were identified at the 5+ 6+ 7+ 12 +3 o'clock position. Cervical biopsies were obtained from the 5+ 6+ 7+ 12 +3 o'clock position, follo wed by an endocervical curettage (ECC). Vaginoscopy of the upper vagina revealed no evidence of aceto-white lesions. Hemostasis was achieved using Monsel solution, and the patient tolerated the procedure well. Post-Procedure Instructions: The patient was advised to promptly contact the office or the after hours answering service or go to the emergency room if experiencing a temperature exceeding 100.4?F, abdominal pain, nausea/vomiting, or bleeding. Additionally, the patient was instructed to abstain from vaginal intercourse and bathtub use. The patient confirmed understanding of these instructions. Discharge Instructions: The patient was instructed to schedule a follow-up appointment in 2 weeks for further evaluation and management. Please note that this note was generated using a voice recognition program, and errors may have occurred during brick burner. [id number] of cervix including upper vagina with biopsy and ECC Procedure code (CPT) selection complete Assessment & Plan Assessment & Plan (1) Atypical glandular cells of undetermined significance (CHICHI) on cervical Pap smear: Comment: With endometrial cells present HPV negative Code(s): R87.619 - Unspecified abnormal cytological findings in specimens from cervix uteri Category: Medical Plan: Discussed with the patient the result of her abnormal pap, its significance, risk of progression, persistence, and regression. the false positive/negative rate of a Pap smear as a screening test in detecting cervical cancer and the indication for a diagnostic test -colposcopy, biopsy, endocervical curettage, EMB done on 12/30/2024. The patient verbalized understanding and agreed with the plan, all questions answered. Colpo/biopsy/ECC done, see procedure note Orders: Orders AMB Colposcopy Today R87.619 - Unspecified abnormal cytological findings in s pecimens from cervix uteri Coding Level of Care Code Procedure Only Diagnoses Atypical glandular cells of undetermined significance (CHICHI) on cervical Pap smear R87.619 CPT Codes Colposcopy - CPT: 88229-[place] of cervix including upper vagina with biopsy and ECC ([id number])
[2025-01-06 15:30] VITALS: BP 122/84; BMI 44.3
== END 2025-01-06 15:52 | disposition home or self-care (01) ==
LOC: HO.HWS 15:23
PROVIDERS: Visit Provider Obstetrics & Gynecology
DX: R87.619 Unspecified abnormal cytological findings in specimens from cervix uteri (principal); Z32.02 Encounter for pregnancy test, result negative
CPT/HCPCS: 57454

== ENCOUNTER 2025-01-06 15:23 | Outpatient (REF) | payer SELFPAY | END 2025-01-06 15:24 | disposition home or self-care (01) | LOC: HO.LNP 15:23 | PROVIDERS: Visit Provider Obstetrics & Gynecology | DX: R87.619 Unspecified abnormal cytological findings in specimens from cervix uteri (principal) | CPT/HCPCS: 57454; 81025; 88305; 88341; 88342 ==

== ENCOUNTER 2025-03-09 13:46 | Outpatient (AMB) | payer MEDICAID, SELFPAY ==
--- NOTE | 2025-03-09 14:12 | A.OFFVIS_ITS ---
Vital Signs 03/09/25 14:21 Height 5 ft 3 in Weight 250 lb BMI 44.3 Intake Visit Reasons: IUD check Marketing Services Coordinator Required: Yes Marketing Services Coordinator Language: Detective Lieutenant Services: Marketing Services Coordinator Present (in person) Marketing Services Coordinator Name: Cheyenne ALCALA Information Interpreted: non-clinical & clinical Innovations Paraprofessional: Innovations Paraprofessional Present (Cheyenne ALCALA) Accompanied by: Self / Same As Patient Allergies bee pollen [bee stings] Allergy (Verified 03/09/25 14:29) Anaphylaxis peanut Allergy (Verified 03/09/25 14:29) Anaphylaxis Is last menstrual period known: No (mirena) HPI Comments Details: The patient is presenting for IUD check after 1 st period following IUD insertion. The patient has no complaints periods are normal, not painful, and flow is normal. [facility] Social History Alcohol intake: current Alcohol intake frequency: holidays/special occasions only Substance Use Type: Marijuana Review of Systems Const All systems reviewed & are unremarkable except as noted in HPI and below Physical Exam Vital Signs: BMI result Body Mass Index 44.3 General: Yes no CVA tenderness External Female Exam: normal external appearance and normal appearance of the urethra Speculum Exam - Vagina: normal appearance of the vagina, normal palpation, no lesions and no masses Speculum Exam - Cervix: normal appearance of the cervix, normal palpation, no lesions, no masses, nontender and Other cervical findings present (IUD thread seen) Bimanual exam- vagina & uterus: normal bimanual exam, normal palpation, uterine size normal, normal palpation, uterine shape normal, No Cervical tenderness present and non-tender Bimanual Exam- Adnexa, other: normal adnexae Back/Spine/Pelvis Back: no CVA tenderness Assessment & Plan Assessment & Plan (1) IUD check up: Comment: Anemia Code(s): Z30.431 - Encounter for routine checking of intrauterine contraceptive device Category: Medical Plan: UPT done in the office was negative. Iron sulfate 325 mg p.o. b.i.d. and repeat CBC in 3 months. Instructions given the patient to schedule her Screening mammogram , order placed few weeks ago. Discussed with the patient the finding on physical exam, IUD string in place, the patient was reassured. Instructions given to patient to call in case of temperature above 100.4, severe cramping/pelvic pain, abnormal discharge or abnormal uterine bleeding or if she misses her menstrual cycle. Instructions given to patient to follow-up in 3 months with a CBC her to the visit, order placed. All questions answered, the patient verbalized understanding. Orders: Orders Complete Blood Count no Diff 3 Months N93.9 - Abnormal uterine and vaginal bleeding, unspecified Coding Level of Care Code Est Pt Level 3 (39218) Diagnoses IUD check up Z30.431
[2025-03-09 14:21] VITALS: BMI 44.3
--- OUTSIDE RECORDS SUMMARY | 2025-03-09 15:05 | XMS_ITS | Continuity of Care Document ---
Author Organization [facility] Address [address] [address] Phone Care Team Providers Care Machinist Name Role Phone Jerica PIZARRO, Bunny Unavailable Unavailable Allergies, Adverse Reactions, Alerts Substance Reaction Status Criticality No Known Allergies Active No Inform ation Medications Medication Instructions Dosage Effective Dates (start - stop) Status Comments ibuprofen 200 mg capsule - Activ e cyclobenzaprine 5 mg tablet - Ac tive Procedures Procedure Date Office/Oupt E&M New Pt 20 Mins 20 Duplex Scan-extrem Veins; Comp 20 Advance Directives Directive Yes / No Effective Date File Name No Information Encounters Encounter Description Practice Location Reason(s) For Visit Diagnoses Date Provider Providers Copied on Encounter Office/Oupt E&M New Pt 20 Mins [facility], [address] [place] [address], [id number], [place] tel:[phone] [facility] - [place] [facility] [place] Pain in left legPain in right leg 0 eJrica PIZARRO Bunny. [address] [facility], [facility] [address], [place], [place], [id number] , [place]. tel: [phone] Referring Provider: Nyla Blake APRN, [address] [place], [address]. tel:[phone] [facility] [address], [id number], tel:[phone] [facility] - [place] Chronic venous htn w oth comp of bilateral low extrmChronic venous htn w inflammation of bilateral low extrm 0 Jerica PIZARRO Bunny. [address] [facility], [address], [place], [place], [id number] , [place]. tel: [phone] Referring Provider: Nyla Blake APRN, [address] [place], [address]. tel:[phone] Family History Family Member Type Diagnosis Age At Onset No Information Payers Payer name Insurance type Covered libertarian ID Gutierrez martinez(s) Medical Assistance [facility] [id number] Social History Type Description Quantity Date Captured Comments Alcohol Use Details Caffeine Use Details Unknown Tobacco Use Status Light cigarette smok er (1-9 cigs/day) Smoking Status Light tobacco smoker Smoking Tobacco Use Details Cigarette: Age Started: 8 Cigarette: 5 Cigarettes per day Sex Female Vital Signs Date / Time: Height Weight BMI Pulse Rate Blood Pressure Temperature Respiratory Rate Body Surface Area Head Circumference Head Circ. Percentile Wt./Ortiz. Percentile BMI percentile Pulse Ox Inhaled Ox 8:51 AM 63.00 in 112/76 mm[Hg] 18 /min 21 % Chief Complaint And Reason For Visit No Information Reason For Referral Reason For Referral No Information Plan Of Treatment Date Type Action Status Goal Tobacco cessation counseling completed Referral Ordered: Duplex Scan-extrem Veins; Uni/ Left ordered History Of Present Illness Encounter Date Complaint History Of Prese nt Illness No Information Functional Status Date Functional Assessmen t Pain Score 8/10 Instructions Date Instruction Additional Infor mation Patient education booklet given Related to Pain in LEG; LEFT (Full Leg) Assessments Type Assessment Date assessment Pain in left leg assessment Pain in right leg Patient Care Teams Name Effective Dates (start - stop) Status Members No Information
== END 2025-03-09 14:52 | disposition home or self-care (01) ==
LOC: HO.HWS 13:46
PROVIDERS: Visit Provider Obstetrics & Gynecology
DX: Z30.431 Encounter for routine checking of intrauterine contraceptive device (principal)
CPT/HCPCS: 99213

== ENCOUNTER → 2025-03-09 13:46 | Outpatient (BNVA) | payer MEDICAID, SELFPAY | PROVIDERS: Visit Provider Obstetrics & Gynecology | DX: Z30.431 Encounter for routine checking of intrauterine contraceptive device (principal) | CPT/HCPCS: 99212 ==